=== PATIENT | male | born 1965 | race Caucasian/White ===

== ENCOUNTER 2016-09-06 12:15 | Day surgery (SDC) | payer OTHER ==
[~2016-09-06] VITALS: Ht 182.9 cm; Wt 75.1 kg
[2016-09-06 12:56] VITALS: Ht 182.9 cm; Wt 75.1 kg
[2016-09-06 13:29] VITALS: BP 127/85; PULSE 95; RESP 20
[2016-09-06] MEDS ORDERED: FENTAnyl 50 MCG/ML VIAL ONE (14:08)
[2016-09-06 14:25] VITALS: BP 131/87; PULSE 79; RESP 18
--- NOTE | 2016-09-06 14:44 | GILP ---
DATE OF PROCEDURE: PREOPERATIVE DIAGNOSIS: Screening colonoscopy, lower abdominal pain. POSTOPERATIVE DIAGNOSIS: Normal colonoscopy. DESCRIPTION OF PROCEDURE: The patient was put in the left lateral decubitus after obtaining informe d consent, and was sedated with 4 mg IV Versed and 100 mcg of fentanyl. The Olympus video colonosco pe was advanced all the way to the cecum. A mediocre prep, but I was able to lavage. Examination o f the appendix and ileocecal valve were normal. Cecum and ascending colon normal. Transverse colon and descending colon normal. In the sigmoid colon, the rectosigmoid normal. In the rectum, includ ing retroflexion and antegrade exam, are actually normal. Upon removal of the scope the patient had no complications. Dear Dr. Estuardo Murdock: The patient complains of lower abdominal pressure. It may be bladder induced pain. Recommend a urol ogical exam and maybe even consider ultrasonography. Dictated By: JEFFREY DOMINGO Conf#: [id number] DID#: [id number] CC: Estuardo Murdock MD;*EndCC*
[2016-09-06] MEDS ORDERED: MIDAZOLAM 1 MG/ML 2 ML INJ ONE ×2 (15:08)
== END 2016-09-06 16:26 | disposition home or self-care (01) ==
LOC: GIL 12:15
PROVIDERS: ATTEND Internal Medicine
DX: Z12.11 Encounter for screening for malignant neoplasm of colon (principal)
CPT/HCPCS: 45378; J2250; J3010; Z7610

== ENCOUNTER 2016-10-06 13:03 | Emergency (ER) | payer OTHER ==
[~2016-10-06] VITALS: Wt 78.5 kg
[2016-10-06] MEDS ORDERED: LEVO500T72 PO (13:45)
[2016-10-06] MEDS ORDERED: SOD CHLORIDE 0.9% 1,000 ML IV STA (13:49)
[2016-10-06] MEDS ORDERED: KETOROLAC 15 MG INJ IV STA (13:49)
[2016-10-06 14:21] LABS: ADD SCAN DIFF NO
[2016-10-06 14:25] LABS: BASOPHILS % 0.4 % (0.0-2.0); EOSINOPHILS # 0.1 10^3/ul (0.0-0.5); EOSINOPHILS % 0.7 % (0.0-7.0); HEMATOCRIT 46.1 % (42.0-52.0); HEMOGLOBIN 16.1 g/dl (14.0-18.0); LYMPHOCYTES # 1.8 10^3/ul (0.8-2.9); LYMPHOCYTES % 21.7 % (15.0-51.0); MEAN CORPUSCULAR HEMOGLOBIN 31.2 pg (29.0-33.0); MEAN CORPUSCULAR HGB CONC 34.9 g/dl (32.0-37.0); MEAN CORPUSCULAR VOLUME 89.3 fl (82.0-101.0); MEAN PLATELET VOLUME 10.3 fl (7.4-10.4); MONOCYTE # 0.7 10^3/ul (0.3-0.9); MONOCYTES % 8.2 % (0.0-11.0); NEUTROPHIL # 5.8 10^3/ul (1.6-7.5); NEUTROPHILS % 68.6 % (39.0-77.0); PLATELET COUNT 257 10^3/UL (140-415); RED BLOOD COUNT 5.16 10^6/ul (4.70-6.10); RED CELL DISTRIBUTION WIDTH 11.9 % (11.5-14.5); WHITE BLOOD COUNT 8.4 10^3/ul (4.8-10.8)
[2016-10-06 14:36] LABS: ALBUMIN 4.3 g/dl (3.3-4.9); POTASSIUM 4.2 mmol/L (3.5-5.1)
[2016-10-06 14:37] LABS: INR 0.88; PROTIME 11.9 Sec (12.2-14.2); PT RATIO 0.9
[2016-10-06 14:38] LABS: BILIRUBIN,INDIRECT 0.5 mg/dl (0-1.1); BILIRUBIN,TOTAL 0.5 mg/dl (0.2-1.3); CREATININE 0.83 mg/dl (0.61-1.24)
[2016-10-06 14:39] LABS: ALBUMIN/GLOBULIN RATIO 1.43; CALCIUM 9.4 mg/dl (8.4-10.2); TOTAL PROTEIN 7.3 g/dl (6.1-8.1)
--- NOTE | 2016-10-06 14:50 | RADRPT ---
PROCEDURE: CT Abdomen and Pelvis without contrast. CLINICAL INDICATION: Abdominal pain TECHNIQUE: CT scan of the abdomen and pelvis without contrast was performed. The patient was scann ed without intravenous contrast. Coronal and sagittal reformatted images were obtained from the axi al source images. Use of iterative reconstruction technique was employed. Images were reviewed on a high-resolution PACS workstation. images. The calculated radiation dose measures 524.80 mGy centimet ers. The CTDI measures 8.72 mGy. One or more of the following dose reduction techniques were used: - Automated exposure control. - Adjustment of the mA and/or kV according to patient size . - Use of iterative reconstruction technique. Images were reviewed on a high-resolution PACS workstation COMPARISON: None. FINDINGS: CT abdomen: The lung bases are clear. The heart size is normal, without pericardial thickening or effusion. Th e liver is normal in size and density without focal mass or intrahepatic biliary dilatation. The sp adam is normal in size and homogeneous in density. The stomach is partially collapsed, but is gross ly unremarkable. The pancreas as visualized is normal. The gallbladder and biliary tree are unrem arkable and there is no evidence for biliary dilatation. The adrenal glands are symmetric and amber l. The kidneys are symmetrically unremarkable as well. No renal calculus or obstructive uropathy o r mass lesion is seen. The aorta is of normal caliber. Aortic vascular calcifications are present. There is no retroperit garza lymphadenopathy. The vern hepatis region is clear. The bowel and mesentery, as visualized, are equally unremarkable. CT pelvis: The small bowel loops situated within the pelvis are unremarkable. The pelvic organs are normal. T he pelvic sidewalls and inguinal regions are clear. The sigmoid colon and rectum are remarkable for sigmoid diverticulosis. Normal unenhanced appearance of the appendix. No mass, lymphadenopathy, or free fluid is seen. No acute inflammation is seen. The bladder wall is thickened, which is nonspec ific. Fat containing left inguinal hernia per The surrounding osseous structures are remarkable for degenerative spondylosis of the spine. No ost eolytic or osteoblastic lesion is detected. IMPRESSION: 1. No acute inflammatory process identified within the abdomen and pelvis on this noncontrast examin ation. 2. Normal unenhanced appearance of the appendix. 3. Mildly collapsed bladder with apparent wall thickening, this is nonspecific, but to be correlate d with urinalysis to exclude cystitis. 4. Atherosclerotic vascular calcifications. 5. Sigmoid diverticulosis without CT evidence of diverticulitis. RPTAT: EE .Nicola Hicks MD, MD Date Time Electronically viewed and signed by .Nicola Hicks MD, on 10/06/2016 14:50 .d/
[2016-10-06] MEDS ORDERED: OXYC-279 PO (14:57)
--- NOTE | 2016-10-06 15:02 | ERD ---
ER Documentation Chief Complaint Date/Time DATE: 10/06/16 TIME: 15:00 Chief Complaint ABD PAIN, FLANK PAIN, PT DX WITH UTI, ON ABX HPI 50-year-old man presents with suprapubic abdominal pain after recently being diagnosed with urinary tract infection. He has been having intermittent abdominal pain for about 3 months and a CAT scan of the abdomen and pelvis performed at that time was unremarkable. Patient has been using antibiotics for the last 5 days and just began levofloxacin oral therapy. Patient denies blood per rectum or mucus in his stools, he denies diarrhea or severe constipation. He states earlier in the week he did have dysuria but those symptoms improved with antibiotic therapy. Furthermore the patient had a colonoscopy last week which was completely normal. He is scheduled to see his urologist tomorrow and he states he will most likely undergo cystoscopy. He denies weight loss, no fevers or chills, no vomiting, no headache or blurry vision. Patient has been using ibuprofen at home with good results. ROS All systems reviewed and are negative except as per history of present illness. Medications Home Meds Active Scripts Oxycodone HCl/Acetaminophen (Percocet 5-325 mg Tablet) 1 Each Tablet, 1 EACH PO TID Y for PAIN, #12 TAB Prov:KI AVILA MD 10/06/16 Reported Medications Levofloxacin* (Levaquin*) 500 Mg Tablet, 500 MG PO DAILY for 10 Days, TAB PER PT STARTED ON 10-02-16 10/06/16 Discontinued Reported Medications [None] No Conflict Check 09/06/16 Allergies Allergies: Coded Allergies: No Known Allergy (Unverified , 07/07/16) PMhx/Soc Recent urinary tract infection, recurrent abdominal pain History of Surgery: No Anesthesia Reaction: No Hx Neurological Disorder: No Hx Respiratory Disorders: No Hx Cardiac Disorders: No Hx Psychiatric Problems: No Hx Miscellaneous Medical Probl: No Hx Alcohol Use: No Hx Substance Use: No Hx Tobacco Use: No Smoking Status: Never smoker FmHx Family History: No diabetes Physical Exam Vitals Vital Signs Date Time Temp Pulse Resp B/P Pulse Ox O2 Delivery O2 Flow Rate FiO2 10/06/16 15:11 80 23 151/90 100 Room Air 10/06/16 14:13 87 22 168/98 100 Room Air 10/06/16 13:06 100.0 97 18 157/91 99 Physical Exam GENERAL: Well-developed, well-nourished, dehydrated HEENT: Dry mucous membranes, pink conjunctiva, no cervical spine tenderness or step-off deformities, no goiter, no jaundice or icterus, extraocular movements intact without pain. No submandibular induration, and no pharyngeal erythema NEURO: Alert and oriented 3, cranial nerves II through XII intact bilaterally, pupils equal round reactive to light, no focal deficits or facial asymmetry, sensation intact distally Strength 5/5 in upper and lower extremities bilaterally CARDIAC: Regular rate and rhythm, no murmurs rubs or gallops LUNGS: Clear bilaterally no wheezing crackles or stridor ABDOMEN: Soft nontender, no guarding, no rigidity, no rebound, no psoas sign no obturator sign. Normoactive bowel sounds SKIN: Warm and dry to touch, no abrasions, contusions, or hematomas, no lacerations, no ecchymosis, no target lesions, and without ulcers EXTREMITIES: No clubbing cyanosis or edema, calves are bilaterally symmetrical, no Homans sign, no popliteal cord sign. Distal pulses equal and bilateral PSYCH: Normal affect without agitation or irritability Result Diagram: 10/06/16 1415 10/06/16 1415 Results 24 hrs Laboratory Tests Test 10/06/16 14:15 Alanine Aminotransferase (ALT/SGPT) 29IU/L Albumin 4.3g/dl Albumin/Globulin Ratio 1.43 Alkaline Phosphatase 95IU/L Anion Gap 17 Aspartate Amino Transf (AST/SGOT) 21IU/L Basophils # 0.010^3/ul Basophils % 0.4% Blood Urea Nitrogen 13mg/dl Calcium Level 9.4mg/dl Carbon Dioxide Level 25mmol/L Chloride Level 105mmol/L Creatinine 0.83mg/dl Direct Bilirubin 0.00mg/dl Eosinophils # 0.110^3/ul Eosinophils % 0.7% Globulin 3.00g/dl Glucose Level 109mg/dl Hematocrit 46.1% Hemoglobin 16.1g/dl INR International Normalized Ratio 0.88 Indirect Bilirubin 0.5mg/dl Lipase 51U/L Lymphocytes # 1.810^3/ul Lymphocytes % 21.7% Mean Corpuscular Hemoglobin 31.2pg Mean Corpuscular Hemoglobin Concent 34.9g/dl Mean Corpuscular Volume 89.3fl Mean Platelet Volume 10.3fl Monocytes # 0.710^3/ul Monocytes % 8.2% Neutrophils # 5.810^3/ul Neutrophils % 68.6% Nucleated Red Blood Cells # 0.010^3/ul Nucleated Red Blood Cells % 0.0/100WBC Platelet Count 31537^3/UL Potassium Level 4.2mmol/L Prothrombin Time 11.9Sec Prothrombin Time Ratio 0.9 Red Blood Count 5.1610^6/ul Red Cell Distribution Width 11.9% Sodium Level 143mmol/L Total Bilirubin 0.5mg/dl Total Protein 7.3g/dl White Blood Count 8.410^3/ul Current Medications Medications (Trade) Dose Ordered Sig/Zuhari Route PRN Reason Start Time Stop Time Status Last Admin Dose Admin Sodium Chloride (NS) 1,000 ml @ 1,000 mls/hr Q1H STAT IV 10/06/16 13:49 10/06/16 14:48 DC 10/06/16 13:54 Ketorolac Tromethamine (Toradol) 15 mg ONCE STAT IV 10/06/16 13:49 10/06/16 13:50 DC 10/06/16 13:54 Procedures/MDM IV line was established patient was placed on manager cost rhythm strip revealed a sinus rhythm at about 80 bpm with upright P and T waves. Patient was afebrile. I administered 1 L normal saline intravenously and Toradol 15 mg IV with good pain control. CT scan of the abdomen and pelvis was performed revealing thickened bladder concerning for cystitis no other acute inflammatory or infectious pathology was noted. CBC and electrolytes are normal, liver function tests were normal, urine culture has been ordered results are pending I will follow-up. Patient looks well and is using antibiotic therapy as prescribed by his PMD, he has had GI consultations and is due to see a urologist tomorrow. No indication for any further ED imaging, workup, or admission. I did recommend probiotic therapy. Differential diagnoses considered, included but not limited to acute coronary syndrome, pulmonary embolism, aortic dissection, abdominal aortic aneurysm, sepsis, stroke, meningitis, encephalitis, pneumonia, appendicitis, cholecystitis , bowel obstruction, pyelonephritis, nephrolithiasis, cystitis, as well as metabolic, hematologic, and electrolyte abnormalities. As well as abscess, cellulitis, fractures, and dislocations. Patient feels much better at this time, and vital signs are normal, symptoms have improved. I did give strict instructions to return to the ED if symptoms continue or worsen, patient will otherwise follow-up with primary care physician. Patient understood instructions and agreed to plan. Departure Diagnosis: Primary Impression: Abdominal pain Abdominal location: lower abdomen, unspecified Qualified Code: R10.30 - Lower abdominal pain Additional Impression: UTI (urinary tract infection) Urinary tract infection type: acute cystitis Hematuria presence: without hematuria Qualified Code: N30.00 - Acute cystitis without hematuria Condition: Good Patient Instructions: Abdominal Pain Referrals: YESSI SANTILLAN (PCP) KI AVILA MD Oct 06, 2016 15:02
[2016-10-06 15:11] VITALS: BP 151/90; PULSE 80; RESP 23
== END 2016-10-06 15:05 | disposition home or self-care (01) ==
LOC: E/R 13:03
DX: R10.30 Lower abdominal pain, unspecified (principal); N30.00 Acute cystitis without hematuria
CPT/HCPCS: 36415; 74176; 80053; 83690; 85025; 85610; 96374; J1885; J7030; Z7502; Z7610